=== PATIENT | male | born 1985 | race Caucasian/White ===

== ENCOUNTER 2018-05-05 09:03 | Inpatient (IN) | payer OTHER ==
[~2018-05-05 09:03] MED LIST: CEFAZOLIN 1 GM INJ; SOD CHLORIDE 0.9% 1,000 ML IV
[2018-05-05] MEDS ORDERED: HYDROmorphONE 2 MG/ML SYG ×3 (11:09→13:16)
[2018-05-05] MEDS ORDERED: MIDAZOLAM 1 MG/ML 2 ML INJ ×2 (11:09→12:08)
[2018-05-05] MEDS ORDERED: DIPHENHYDRAMINE 50 MG INJ IV (11:30)
[2018-05-05] MEDS ORDERED: MEPERIDINE 25 MG INJ IV (11:30)
[2018-05-05] MEDS ORDERED: LABETALOL HCL 20MG INJ IV (11:30)
[2018-05-05] MEDS ORDERED: HYDROmorphONE 1 MG/5 ML IV SYRINGE IV (11:30)
[2018-05-05] MEDS ORDERED: FENTAnyl 50 MCG/ML VIAL ×2 (12:08→12:27)
[2018-05-05] MEDS ORDERED: SUGAMMADEX SODIUM 200 MG/2 ML VIAL IV (12:20)
[2018-05-05] MEDS ORDERED: ONDANSETRON 4 MG INJ (12:33)
[2018-05-05] MEDS ORDERED: DEXAMETHASONE 4 MG/ML 5 ML INJ (12:33)
[2018-05-05] MEDS: CEFAZOLIN 1 GM/50 ML (PMX) 50 ML IVPB (12:35)
[2018-05-05] MEDS ORDERED: ROCURONIUM 50 MG INJ (13:16)
[2018-05-05] MEDS ORDERED: LIDOCAINE 100 MG SYRINGE (13:16)
[2018-05-05] MEDS ORDERED: PROPOFOL 100 ML (13:16)
[2018-05-05] MEDS ORDERED: SUCCINYLCHOLINE CHLORIDE 100 MG/5 ML SYG IV (13:16)
[2018-05-05] MEDS ORDERED: HYDROCODONE/APAP (7.5/325) TAB PO (14:00)
[2018-05-05] MEDS: ONDANSETRON 4 MG INJ IV (14:55)
[2018-05-05] MEDS: LORAZEPAM 2 MG INJ IV (14:55)
[2018-05-05] MEDS: HYDROmorphONE 1 MG/5 ML IV SYRINGE IV ×4 (14:56→15:44)
[2018-05-05] MEDS: OXYCODONE/ACETAMINOPHEN (5/325) TAB PO (16:21)
[2018-05-05] MEDS ORDERED: FENTAnyl 50 MCG/ML VIAL IV ×3 (16:30)
[2018-05-05] MEDS ORDERED: OXYCODONE/ACETAMINOPHEN (5/325) TAB PO (16:30)
== END 2018-05-05 18:32 | disposition home or self-care (01) | DRG 585 ==
LOC: REC 09:03
PROC: 0HBV0ZZ Excision of Bilateral Breast, Open Approach (ICD-10-PCS; principal; 2018-05-05 11:00)
DX: N62 Hypertrophy of breast (principal)
CPT/HCPCS: 88307